=== PATIENT | female | born 1950 | race Caucasian/White ===

== ENCOUNTER → 2019-06-05 | Outpatient (CLI) | payer MEDICARE, OTHER | LOC: RAD 14:58 | DX: N20.0 Calculus of kidney (principal) ==

== ENCOUNTER 2020-09-21 13:55 | Outpatient (RCR) | payer MEDICARE, OTHER | END 2020-12-20 | disposition home or self-care (01) | LOC: PT | DX: S82.042A Displaced comminuted fracture of left patella, initial encounter for closed fracture (principal) ==

== ENCOUNTER → 2020-11-11 | Outpatient (CLI) | payer MEDICARE, OTHER ==
[2020-11-11 17:00] LABS: URINE APPEARANCE CLOUDY; URINE COLOR AMBER
[2020-11-11 17:01] LABS: URINE BILIRUBIN 2+ (NEGATIVE); URINE BLOOD 250 ery/uL (NEGATIVE); URINE GLUCOSE NEGATIVE (NEGATIVE); URINE KETONE TR (NEGATIVE); URINE LEUKOCYTE ESTERASE 2+ (NEGATIVE); URINE NITRATE POSITIVE (NEGATIVE); URINE PROTEIN(semi-quant) 2+ mg/dL (NEGATIVE); URINE UROBILINOGEN NORMAL (NORMAL); URINE WBC >50 /hpf (0-3)
== END ==
LOC: LAB 15:19
PROVIDERS: Urology
DX: R30.0 Dysuria (principal); R35.0 Frequency of micturition

== ENCOUNTER 2020-12-21 07:54 | Outpatient (RCR) | payer MEDICARE, OTHER | END 2021-03-21 | disposition home or self-care (01) | LOC: PT | DX: S82.042A Displaced comminuted fracture of left patella, initial encounter for closed fracture (principal) ==

== ENCOUNTER → 2022-04-25 | Outpatient (CLI) | payer MEDICARE, OTHER | LOC: RAD 08:11 | DX: S69.91XA Unspecified injury of right wrist, hand and finger(s), initial encounter (principal); W23.0XXA Caught, crushed, jammed, or pinched between moving objects, initial encounter ==

== ENCOUNTER → 2024-05-28 | Outpatient (CLI) | payer MEDICARE | LOC: RAD 09:44 | DX: M17.12 Unilateral primary osteoarthritis, left knee (principal) ==